=== PATIENT | female | born 1995 | race American Indian/Alaskan Native ===

== ENCOUNTER 2018-06-06 23:05 | Emergency (ER) | payer MEDICAID ==
[2018-06-07 01:12] LABS: Basophils % (Auto) 0.5 % (0.0-1.8); Eosinophils # (Auto) 0.1 K/mm3 (0.0-0.4); Eosinophils % (Auto) 2.1 % (0.0-4.3); Hematocrit 34.1 % (30.3-42.9); Hemoglobin 11.2 gm/dl (10.1-14.3); Lymphocytes # (Auto) 0.9 K/mm3 (1.2-5.4); Lymphocytes % (Auto) 13.3 % (13.4-35.0); Mean Corpuscular HGB Conc 33 % (30-34); Mean Corpuscular Hemoglobin 30 pg (28-32); Mean Corpuscular Volume 92 fl (79-97); Monocytes # (Auto) 0.3 K/mm3 (0.0-0.8); Monocytes % (Auto) 4.2 % (0.0-7.3); Platelet Count 168 K/mm3 (140-440); Red Blood Count 3.71 M/mm3 (3.65-5.03); Red Cell Distribution Width 13.9 % (13.2-15.2)
[2018-06-07 01:26] LABS: BUN/Creatinine Ratio 8; Blood Urea Nitrogen 3 mg/dL (7-17); Calcium 8.6 mg/dL (8.4-10.2); Hemolysis Index 0
--- NOTE | 2018-06-07 02:41 | Ultrasound Report ---
FINAL REPORT EXAM: US OB > = 14 WEEKS FETUS HISTORY: Vaginal Bleeding TECHNIQUE: Transabdominal imaging was obtained of the pelvis with Doppler interrogation of the fetus. FINDINGS: There is a single viable intrauterine in transverse position with an estimated gestational age of 18 weeks 4 days based on sonographic criteria. The heart rate is 163 BPM. The placenta is anterior and is grade 0. The amniotic fluid volume is normal. There are no anomalies involving the stomach, kidneys, bladder, diaphragm, four-chamber reveal heart, three-vessel cord or abdominal cord insertion. The spine is not adequately seen for evaluation. The estimated weight is 253 grams. The cervix is closed. It measures 3.8 cm in length IMPRESSION: Single viable IUP, 18 weeks 4 days. The heart rate is 163 BPM.
[2018-06-07] MEDS ORDERED: TYLENOL PO ONE (04:34)
--- NOTE | 2018-06-07 04:34 | Emergency Department Report ---
ED HPI - General Chief complaint: Vaginal Bleeding Stated complaint: VAG BLEED/19WKS Time Seen by Provider: 06/07/18 04:27 Source: patient Mode of arrival: Ambulatory Limitations: No Limitations - History of Present Illness Initial comments: 22-year-old -Emir[place] female is 2 para 1 that is 19 weeks reports to triage that she is having vaginal bleeding and abdominal cramps that started yesterday approximately 1400 hrs. Patient reports to me that she is having no vaginal bleeding and cramping has stopped she reports that she has a headache for one day but did not take anything for her headaches and she says "patient's I don't have anything". Patient is currently on no vitamins. She is followed by OB susannah dhaliwal. Her next appointment is . MD Complaint: vaginal bleeding -: days(s) (1) Quality: cramping (has resolved) :: Yes Number of weeks : 19 OB History - Current : no complications OB History - Previous Pregnancies: no complications Pre-basilia care: followed by OB (at [facility]) - Related Data : 2 Para: 1 Allergies Allergy/AdvReac Type Severity Reaction Status Date / Time No Known Allergies Allergy Unverified 06/07/18 00:45 ED Review of Systems ROS: Stated complaint: VAG BLEED/19WKS Other details as noted in HPI ED Past Medical Hx - Past Medical History Previous Medical History?: No - Surgical History Past Surgical History?: No - Social History Smoking Status: Never Smoker Substance Use Type: None ED Physical Exam - General Limitations: No Limitations General appearance: alert, in no apparent distress - Head Head exam: Present: atraumatic, normocephalic - ENT ENT exam: Present: mucous membranes moist - Neck Neck exam: Present: full ROM - Respiratory Respiratory exam: Present: normal lung sounds bilaterally. Absent: respiratory distress - Cardiovascular Cardiovascular Exam: Present: regular rate, normal rhythm. Absent: systolic murmur, diastolic murmur, rubs, gallop - GI/Abdominal GI/Abdominal exam: Present: soft - Extremities Exam Extremities exam: Present: full ROM - Neurological Exam Neurological exam: Present: alert, oriented X3 - Psychiatric Psychiatric exam: Present: normal affect, agitated - Skin Skin exam: Present: warm, dry, intact, normal color. Absent: rash ED Course Vital Signs 06/06/18 06/07/18 23:03 00:41 Temperature 99.5 F 99.5 F Pulse Rate 112 H 106 H Respiratory 20 18 Rate Blood Pressure 121/70 121/70 O2 Sat by Pulse 100 100 Oximetry ED Medical Decision Making - Lab Data Result diagrams: 06/07/18 00:57 06/07/18 00:57 - Radiology Data Radiology results: report reviewed, image reviewed FINAL REPORT EXAM: US OB gt; = 14 WEEKS FETUS HISTORY: Vaginal Bleeding TECHNIQUE: Transabdominal imaging was obtained of the pelvis with Doppler interrogation of the fetus. FINDINGS: There is a single viable intrauterine in transverse position with an estimated gestational age of 18 weeks 4 days based on sonographic criteria. The heart rate is 163 BPM. The placenta is anterior and is grade 0. The amniotic fluid volume is normal. There are no anomalies involving the stomach, kidneys, bladder, diaphragm, four-chamber reveal heart, three-vessel cord or abdominal cord insertion. The spine is not adequately seen for evaluation. The estimated weight is 253 grams. The cervix is closed. It measures 3.8 cm in length IMPRESSION: Single viable IUP, 18 weeks 4 days. The heart rate is 163 BPM. Transcribed By: RB Dictated By: DANIELA PAZ MD Electronically Authenticated By: DANIELA PAZ MD Signed Date/Time: 06/07/18235 DD/ 5 TD/TT: 06/07/18235 - Medical Decision Making Patient has been evaluated by this provider fast track. Patient reports that this provider that she no longer has any cramping she denies any vaginal bleeding. She reports the headache 1 day but did not take any medication K she didn't have any. Discharge patient home. Ultrasound was normal shows that she is 18 weeks and 3 days . Patient is to follow up with OB at [place]. Critical care attestation.: If time is entered above; I have spent that time in minutes in the direct care of this critically ill patient, excluding procedure time. ED Disposition Clinical Impression: Abdominal cramping, Disposition: DC-01 TO HOME OR SELFCARE Is pt being admited?: No Does the pt Need Aspirin: No Condition: Stable Additional Instructions: Follow-up with [facility] CALL OUT OPERATOR. You can take Tylenol for your headaches. Referrals: PRIMARY CAREMD [Primary Care Provider] - 3-5 Days [facility] [Outside] - 3-5 Days Forms: Work/School Release Form(ED)
[2018-06-07 05:29] VITALS: BP 119/69
== END 2018-06-07 04:46 | disposition home or self-care (01) ==
LOC: ED 23:05
DX: O26.892 Other specified pregnancy related conditions, second trimester (principal); R10.9 Unspecified abdominal pain; R51 Headache; Z3A.18 18 weeks gestation of pregnancy
CPT/HCPCS: 36415; 76805; 80048; 84702; 85025; 99284